=== PATIENT | female | born 1970 | race Caucasian/White ===

== ENCOUNTER → 2022-11-19 08:23 | Outpatient (CLI) | payer BC, SELFPAY ==
--- NOTE | ~2022-11-19 | XR_ITS ---
EXAMINATION: XR chest 2V 11/19/2022 08:55 INDICATION: Psoriasis PROCEDURE: 2 view chest COMPARISON: No prior studies for comparison. FINDINGS: The lungs are clear. The cardiomediastinal silhouette is within normal limits. There are no pleural effusions. There is no pneumothorax suspected. IMPRESSION: 1: NO ACUTE CARDIOPULMONARY DISEASE. Reviewed, dictated and finalized at location L.
== END ==
DX: L40.0 Psoriasis vulgaris (principal)
CPT/HCPCS: 71046